=== PATIENT | male | born 1975 | race American Indian/Alaskan Native ===

== ENCOUNTER 2017-04-30 07:58 | Emergency (ER) | payer MEDICAID ==
[2017-04-30 08:30] VITALS: BP 137/87
[2017-04-30] MEDS ORDERED: PEPCID PO ONE (11:03)
[2017-04-30] MEDS ORDERED: DELTASONE PO ONE (11:03)
--- NOTE | 2017-04-30 11:04 | Emergency Department Report ---
HPI - General Chief Complaint: Skin Rash Time Seen by Provider: 04/30/17 10:34 - HPI HPI: Vision is a 41-year-old male with no prior medical condition presents to ED complaining of rash and whelps over his entire body intermittently for the past 3 days. Patient states he does not recall if he can contact or if he ate anything different listed for the past 3 days he's been having each evening, her red, hives all over his body. Patient's is to continue Benadryl which relieves his symptoms but states that the itching comes back. Patient states that he is only allergic to cats has not been around any cats recently. He denies fever assess serial/nausea/vomiting/abdominal pain since chest pain or problems. ED Past Medical Hx - Past Medical History Previous Medical History?: No - Surgical History Past Surgical History?: Yes Hx Appendectomy: Yes Additional Surgical History: Umbilical hernia repair as a baby - Social History Smoking Status: Current Some Day Smoker Substance Use Type: Alcohol, Non Opiate Pain, Other - Medications Home Medications: Home Medications Medication Instructions Recorded Confirmed Last Taken Type Hydrocortisone/Aloe Vera 1 applic TP TID #1 tube 04/30/17 Unknown Rx [Cortizone-10 1% Creme] Hydroxyzine HCl 10 mg PO QHS #20 tablet 04/30/17 Unknown Rx Ibuprofen [Motrin] 400 mg PO Q8H PRN #30 tablet 04/30/17 Unknown Rx ED Review of Systems ROS: Stated complaint: RASH ALL OVER Other details as noted in HPI Constitutional: denies: chills, fever Eyes: denies: eye pain, eye discharge, vision change ENT: denies: ear pain, throat pain Respiratory: denies: cough, shortness of breath, wheezing Cardiovascular: denies: chest pain, palpitations Endocrine: no symptoms reported Gastrointestinal: denies: abdominal pain, nausea, diarrhea Genitourinary: denies: urgency, dysuria Musculoskeletal: denies: back pain, joint swelling, arthralgia Skin: pruritus. denies: rash, lesions Neurological: denies: headache, weakness, numbness, paresthesias, confusion Psychiatric: denies: anxiety, depression Hematological/Lymphatic: denies: easy bleeding, easy bruising Physical Exam - Physical Exam Vital Signs: Vital Signs 04/30/17 08:26 Temperature 99.3 F Pulse Rate 116 H Respiratory 18 Rate Blood Pressure 137/87 O2 Sat by Pulse 98 Oximetry Physical Exam: GENERAL: Alert and oriented x3, no apparent distress, Normal Gait, atraumatic. HEAD: Head is normocephalic and a-traumatic. EYES: Extra ocular muscles are intact. Pupils are equal, round, and reactive to light and accommodation. NOSE: Nose symetrical, Nontender,Nares appeared normal. MOUTH:Mouth is well hydrated and without lesions. Tonsils nonerythematous or swollen, Uvula midline, Tongue not elevated. Mucous membranes are moist. Posterior pharynx clear, no exudate or lesions. Patent airways. NECK: Supple. Non edematous,No lymphadenopathy or thyromegaly. LUNGS: Symetrical with respiration, No wheezing, no rales or crackles, CTAB. HEART: S1, S2 present, regular rate and rhythm without murmur, no rubs, no gallops. Non tender to palpation BACK: Full range of motion, no spinal tenderness, nontender to palpation. SKIN: Erythematous, generalized, raised lesions on arms, trunk and thighs consistent with hives. Nonindurated, non-drainage skin is Warm and dry, No other lesions, No ulceration or induration present. ED Course Vital Signs 04/30/17 08:26 Temperature 99.3 F Pulse Rate 116 H Respiratory 18 Rate Blood Pressure 137/87 O2 Sat by Pulse 98 Oximetry ED Medical Decision Making - Medical Decision Making 41-year-old male presents with an allergic dermatitis ED course: Patient's prednisone and Pepcid in ED. Patient reports taking Benadryl so no antihistamine was given I discussed the patient to continue taking the injury was needed for aching and I will send her home with some topical corticosteroid. Discussed the patient to follow up with the primary care physician. I discussed the patient's symptoms worsen or new symptoms develop to return to ED. Vital signs are normal patient is in no acute distress. Critical care attestation.: If time is entered above; I have spent that time in minutes in the direct care of this critically ill patient, excluding procedure time. ED Disposition Clinical Impression: Allergic dermatitis, Hives Disposition: DC-01 TO HOME OR SELFCARE Is pt being admited?: No Does the pt Need Aspirin: No Condition: Stable Instructions: Urticaria (ED), Acute Rash (ED), Contact Dermatitis (ED) Additional Instructions: Make sure to follow up with the primary care physician as discussed. Take all your medications as you've been prescribed. If you have any worsening symptoms or develop new symptoms please return to ED immediately. Prescriptions: Hydroxyzine HCl 10 mg PO QHS #20 tablet Hydrocortisone/Aloe Vera [Cortizone-10 1% Creme] 1 applic TP TID #1 tube Ibuprofen [Motrin] 400 mg PO Q8H PRN #30 tablet PRN Reason: Pain Referrals: PRIMARY CARE, [Primary Care Provider] - 3-[address] [facility] [place] [Outside] - 3-5 Days [facility] [Outside] - 3-5 Days [facility] [Outside] - 3-5 Days Forms: Accompanied Note, Work/School Release Form(ED) Time of Disposition: 11:18
== END 2017-04-30 11:35 | disposition home or self-care (01) ==
LOC: ED 07:58
DX: L23.9 Allergic contact dermatitis, unspecified cause (principal); F17.200 Nicotine dependence, unspecified, uncomplicated
CPT/HCPCS: 99282; J7512